=== PATIENT | male | born 1930 | race Caucasian/White ===

== ENCOUNTER 2017-07-14 13:49 | Inpatient (IN) | payer MEDICARE ==
[~2017-07-14] VITALS: Ht 175.3 cm; Wt 75.6 kg
[2017-07-14 14:17] LABS: HEMATOCRIT 36.3 % (39.2-51.8); HEMOGLOBIN 12.3 g/dL (13.7-18.0)
[2017-07-14 14:29] LABS: BLOOD UREA NITROGEN 21 mg/dL (7-18)
[2017-07-14 14:34] LABS: ASPARTATE AMINO TRANSFERASE 19 U/L (15-37); IS PT STATUS REG ER OR PRE ER? YES
[2017-07-14] MEDS ORDERED: FUROSEMIDE 40 MG/4 ML IV ONE (15:00)
[2017-07-14] MEDS ORDERED: ONDANSETRON 2MG/ML, 2ML IVPush PRN (16:00)
[2017-07-14] MEDS ORDERED: LABETALOL 5MG/ML, 20ML IVPush PRN (16:00)
[2017-07-14] MEDS ORDERED: DOCUSATE 100 MG CAPSULE PO PRN (16:00)
[2017-07-14] MEDS ORDERED: BISACODYL 10 MG SUPP PR PRN (16:00)
[2017-07-14] MEDS ORDERED: ACETAMINOPHEN 325 MG TABLET PO PRN (16:00)
[2017-07-14] MEDS ORDERED: morphine SULFATE 10 MG/ML, 1ML IVPush PRN (16:00)
[2017-07-14] MEDS ORDERED: HYDROcodone/APAP 5/325 TABLET PO PRN (16:00)
[2017-07-14] MEDS ORDERED: POLYETHYLENE GLYCOL 17 GM PACKET PO PRN (16:00)
[2017-07-14] MEDS ORDERED: FUROSEMIDE 40 MG/4 ML ONE (16:13)
[2017-07-14] MEDS: FUROSEMIDE 40 MG/4 ML IV SCH (17:00)
[2017-07-14] MEDS ORDERED: WARF2TAB7 PO (17:29)
[2017-07-14] MEDS ORDERED: WARF2.5T73 PO (17:29)
[2017-07-14] MEDS ORDERED: METO25TA35 PO (17:29)
[2017-07-14 17:38] VITALS: BP 162/69
[2017-07-14] MEDS ORDERED: TAMS-11 PO (18:21)
[2017-07-14] MEDS ORDERED: AMLO10TA4 PO (18:21)
[2017-07-14] MEDS ORDERED: WARFARIN 2 MG TABLET PO-COUM ONE (18:30)
[2017-07-14 18:51] VITALS: BP 145/68
[2017-07-14 19:26] LABS: IS PT STATUS REG ER OR PRE ER? NO
[2017-07-14] MEDS: POTASSIUM CHLORIDE 20 MEQ TAB.ER.PRT PO SCH (19:45)
[2017-07-14] MEDS: METOPROLOL TARTRATE 25 MG TABLET PO SCH (19:45)
[2017-07-14] MEDS: SODIUM CHLORIDE FLUSH 10ML SYR IVF SCH (19:46)
[2017-07-14] MEDS ORDERED: TAMSULOSIN 0.4 MG CAP.ER.24H PO SCH (21:00)
[2017-07-14] MEDS: TAMSULOSIN 0.4 MG CAP.ER.24H PO SCH (21:00)
[2017-07-14 23:35] VITALS: BP 157/62
[2017-07-15 00:10] LABS: IS PT STATUS REG ER OR PRE ER? NO
[2017-07-15 05:26] LABS: HEMATOCRIT 33.6 % (39.2-51.8); HEMOGLOBIN 11.5 g/dL (13.7-18.0); WHITE BLOOD COUNT 5.4 x10^3/uL (3.4-10)
[2017-07-15 05:53] LABS: IS PT STATUS REG ER OR PRE ER? NO
[2017-07-15 05:56] LABS: ASPARTATE AMINO TRANSFERASE 17 U/L (15-37); BLOOD UREA NITROGEN 23 mg/dL (7-18)
[2017-07-15] MEDS: METOPROLOL TARTRATE 25 MG TABLET PO SCH ×2 (06:10→17:11)
[2017-07-15 07:04] VITALS: BP 133/59
[2017-07-15] MEDS: POTASSIUM CHLORIDE 20 MEQ TAB.ER.PRT PO SCH ×2 (08:36→17:10)
[2017-07-15] MEDS: AMLODIPINE 5 MG TABLET PO SCH (08:36)
[2017-07-15] MEDS: SODIUM CHLORIDE FLUSH 10ML SYR IVF SCH ×2 (08:36→21:48)
[2017-07-15] MEDS: FUROSEMIDE 40 MG/4 ML IV SCH ×2 (08:36→17:10)
[2017-07-15 12:19] VITALS: BP 139/65
[2017-07-15] MEDS ORDERED: WARFARIN 5 MG TABLET PO-COUM ONE (17:08)
[2017-07-15 17:15] VITALS: BP 143/72
[2017-07-15] MEDS ORDERED: WARFARIN 2.5 MG TABLET PO-COUM ONE (18:00)
[2017-07-15 18:52] VITALS: BP 138/63
[2017-07-15] MEDS: TAMSULOSIN 0.4 MG CAP.ER.24H PO SCH (21:48)
[2017-07-16 01:40] VITALS: BP 129/58
[2017-07-16 05:19] LABS: HEMATOCRIT 34.4 % (39.2-51.8); HEMOGLOBIN 11.7 g/dL (13.7-18.0); WHITE BLOOD COUNT 5.9 x10^3/uL (3.4-10)
[2017-07-16 05:35] LABS: ASPARTATE AMINO TRANSFERASE 19 U/L (15-37); BLOOD UREA NITROGEN 28 mg/dL (7-18)
[2017-07-16] MEDS: METOPROLOL TARTRATE 25 MG TABLET PO SCH ×2 (06:20→17:28)
[2017-07-16] MEDS: FUROSEMIDE 40 MG/4 ML IV SCH ×2 (07:30→17:28)
[2017-07-16 08:53] VITALS: BP 125/65
[2017-07-16] MEDS: AMLODIPINE 5 MG TABLET PO SCH (08:54)
[2017-07-16] MEDS: POTASSIUM CHLORIDE 20 MEQ TAB.ER.PRT PO SCH ×2 (08:54→17:28)
[2017-07-16] MEDS: SODIUM CHLORIDE FLUSH 10ML SYR IVF SCH ×2 (08:55→21:00)
[2017-07-16 14:34] VITALS: BP 148/61
[2017-07-16] MEDS ORDERED: WARFARIN 3 MG TABLET PO-COUM ONE (18:00)
[2017-07-16 18:45] VITALS: BP 147/66
[2017-07-16] MEDS: TAMSULOSIN 0.4 MG CAP.ER.24H PO SCH (20:44)
[2017-07-17 02:04] VITALS: BP 117/62
[2017-07-17] MEDS: FUROSEMIDE 40 MG/4 ML IV SCH (07:30)
[2017-07-17 08:25] VITALS: BP 133/67
[2017-07-17] MEDS ORDERED: FUROSEMIDE 20 MG/2 ML ONE (08:41)
[2017-07-17] MEDS: POTASSIUM CHLORIDE 20 MEQ TAB.ER.PRT PO SCH ×2 (08:48→18:10)
[2017-07-17] MEDS: METOPROLOL TARTRATE 25 MG TABLET PO SCH (08:49)
[2017-07-17] MEDS: SODIUM CHLORIDE FLUSH 10ML SYR IVF SCH ×2 (08:49→21:04)
[2017-07-17] MEDS: AMLODIPINE 5 MG TABLET PO SCH (08:49)
[2017-07-17 13:10] VITALS: BP 134/57
[2017-07-17] MEDS ORDERED: WARFARIN 2.5 MG TABLET PO-COUM SCH (18:00)
[2017-07-17] MEDS: FUROSEMIDE 20 MG TABLET PO SCH (18:11)
[2017-07-17 19:24] VITALS: BP 123/54
[2017-07-17] MEDS: TAMSULOSIN 0.4 MG CAP.ER.24H PO SCH (21:04)
[2017-07-17] MEDS: CARVEDILOL 3.125 MG TABLET PO SCH (21:04)
[2017-07-18 02:01] VITALS: BP 107/63
[2017-07-18 05:55] LABS: BLOOD UREA NITROGEN 33 mg/dL (7-18)
[2017-07-18 06:39] VITALS: BP 123/61
[2017-07-18] MEDS: SODIUM CHLORIDE FLUSH 10ML SYR IVF SCH (08:32)
[2017-07-18] MEDS: POTASSIUM CHLORIDE 20 MEQ TAB.ER.PRT PO SCH (08:32)
[2017-07-18] MEDS: FUROSEMIDE 20 MG TABLET PO SCH (08:32)
[2017-07-18] MEDS: AMLODIPINE 5 MG TABLET PO SCH (08:32)
[2017-07-18] MEDS: CARVEDILOL 3.125 MG TABLET PO SCH (08:33)
[2017-07-18] MEDS ORDERED: CARV3.1212 PO (09:21)
[2017-07-18] MEDS ORDERED: FURO20TA3 PO (09:21)
[2017-07-18] MEDS ORDERED: POTA20TA6 PO (09:21)
[2017-07-18] MEDS ORDERED: WARFARIN 3 MG TABLET PO-COUM SCH (18:00)
== END 2017-07-18 11:40 | disposition home or self-care (01) | DRG 682 ==
LOC: ED 15:24 → EDIP 15:40 → 5SO 17:03 → DCLOUNGE 07-18 10:36
PROVIDERS: ADMIT Internal Medicine; ATTEND Family Medicine
DX: N17.0 Acute kidney failure with tubular necrosis (principal); I50.33 Acute on chronic diastolic (congestive) heart failure; D68.69 Other thrombophilia; I48.91 Unspecified atrial fibrillation; I11.0 Hypertensive heart disease with heart failure; D63.8 Anemia in other chronic diseases classified elsewhere; Z91.041 Radiographic dye allergy status; E16.2 Hypoglycemia, unspecified; E78.5 Hyperlipidemia, unspecified; Z79.01 Long term (current) use of anticoagulants; Z82.49 Family history of ischemic heart disease and other diseases of the circulatory system; Z95.1 Presence of aortocoronary bypass graft; Z95.2 Presence of prosthetic heart valve; E80.6 Other disorders of bilirubin metabolism; R00.1 Bradycardia, unspecified; T44.7X5A Adverse effect of beta-adrenoreceptor antagonists, initial encounter
CPT/HCPCS: 36415; 71010; 76770; 80048; 80053; 81003; 82247; 82248; 82436; 82570; 83735; 83880; 84133; 84300; 84443; 84484; 85025; 85610; 85730; 93005; 93306; 93970; 99285; J1940